=== PATIENT | female | born 1985 | race Caucasian/White ===

== ENCOUNTER 2021-01-23 13:36 | Emergency (ER) | payer OTHER ==
[~2021-01-23] VITALS: Ht 175.3 cm; Wt 131.5 kg
[2021-01-23 13:48] VITALS: BP 176/115
[2021-01-23] MEDS ORDERED: ZOFRAN ODT4 MG PO (13:54)
== END 2021-01-23 14:02 | disposition home or self-care (01) ==
LOC: M.ERS 13:36
DX: U07.1 COVID-19 (principal); R11.2 Nausea with vomiting, unspecified